=== PATIENT | male | born 1980 | race Caucasian/White ===

== ENCOUNTER 2020-08-24 14:56 | Observation (INO) | payer OTHER ==
[2020-08-24 14:59] VITALS: BP 148/88
[2020-08-24 15:52] LABS: BASO % 0.5 % (0.0-1.0); EOS # 0.1 10*3/uL (0.0-0.4); EOS % 0.7 % (1.0-4.0); HEMATOCRIT 48.3 % (42.0-52.0); LYMPH # 1.2 10*3/uL (1.3-4.4); LYMPH % 13.4 % (27.0-41.0); MEAN CELL VOLUME 81.9 fl (80.0-94.0); MEAN CORPUSCULAR HGB CONC 34.2 g/dl (33.0-37.0); MEAN PLATELET VOLUME 9.7 fl (9.6-12.3); MONO # 0.6 10*3/uL (0.1-1.0); MONO % 6.5 % (3.0-9.0); NEUT # 6.9 10*3/uL (2.3-7.9); NEUT % 78.4 % (47.0-73.0); PLATELET COUNT AUTOMATED 304 10*3/uL (130-400); RED CELL DISTRI WIDTH 12.1 % (0-14.5); WHITE BLOOD COUNT 8.8 10*3/uL (4.8-10.8)
[2020-08-24 15:57] VITALS: BP 168/97
[2020-08-24 16:12] LABS: ALBUMIN 4.2 gm/dl (3.1-4.5); ALKALINE PHOSPHATASE 68 U/L (45-117); BUN 33 mg/dl (7-24); CHLORIDE 91 mmol/L (98-107); CREATININE 1.91 mg/dL (0.70-1.30); LIPASE 398 U/L (73-393); POTASSIUM 3.5 mmol/L (3.5-5.1); SGOT/AST 10 IU/L (3-35); SGPT/ALT 17 U/L (12-78); SODIUM 130 mmol/L (136-145); TOTAL PROTEIN 8.4 gm/dL (6.4-8.2)
[2020-08-24 16:13] LABS: TROPONIN I < 0.015 ng/ml (<0.045)
[2020-08-24 16:43] VITALS: BP 159/78
[2020-08-24 17:16] LABS: ACT PARTIAL THROMBO TIME 25.9 SECONDS (20.0-32.1)
[2020-08-24 18:23] VITALS: BP 97/53
[2020-08-24 18:47] VITALS: BP 156/100
[2020-08-25 06:29] LABS: ALBUMIN 3.6 gm/dl (3.1-4.5); CHLORIDE 100 mmol/L (98-107); POTASSIUM 3.5 mmol/L (3.5-5.1); SODIUM 135 mmol/L (136-145)
[2020-08-25 06:36] LABS: ALKALINE PHOSPHATASE 52 U/L (45-117); CHOLESTEROL 231 mg/dL (<200); CREATININE 1.26 mg/dL (0.70-1.30); HDL CHOLESTEROL 49 mg/dl (40-60); LDL CHOLESTEROL 109 mg/dL (9-159); SGOT/AST 8 IU/L (3-35); SGPT/ALT 13 U/L (12-78); TOTAL PROTEIN 7.1 gm/dL (6.4-8.2); TRIGLYCERIDES 364 mg/dl (<150); VLDL CHOLESTEROL 73 mg/dL (6-40)
[2020-08-25 06:38] LABS: BUN 22 mg/dl (7-24)
[2020-08-25 06:41] LABS: BASO % 0.5 % (0.0-1.0); EOS # 0.1 10*3/uL (0.0-0.4); EOS % 1.1 % (1.0-4.0); LYMPH # 1.6 10*3/uL (1.3-4.4); LYMPH % 26.3 % (27.0-41.0); MEAN CORPUSCULAR HGB 27.9 pg (27.0-31.0); MEAN CORPUSCULAR HGB CONC 33.6 g/dl (33.0-37.0); MEAN PLATELET VOLUME 9.7 fl (9.6-12.3); MONO # 0.6 10*3/uL (0.1-1.0); MONO % 9.5 % (3.0-9.0); NEUT # 3.8 10*3/uL (2.3-7.9); NEUT % 62.1 % (47.0-73.0); PLATELET COUNT AUTOMATED 292 10*3/uL (130-400); RED BLOOD COUNT 5.42 10*6/uL (4.50-5.90); RED CELL DISTRI WIDTH 11.9 % (0-14.5); WHITE BLOOD COUNT 6.1 10*3/uL (4.8-10.8)
[2020-08-25] MEDS ORDERED: ATORVASTATIN CA20 M1 PO (11:08)
[2020-08-25] MEDS ORDERED: AMLODIPINE BESYL5 MG PO (11:08)
[2020-08-25] MEDS ORDERED: GLUCOPHAGE1000 MG PO (11:09)
[2020-08-25 11:11] VITALS: BP 130/93
[2020-08-25] MEDS ORDERED: ZOFRAN4 MG PO (11:11)
== END 2020-08-25 11:32 | disposition home or self-care (01) ==
LOC: ED 14:56 → EDHOLD 18:31
PROVIDERS: Emergency Medicine; Internal Medicine; ADMIT Internal Medicine; ATTEND Internal Medicine
DX: R11.2 Nausea with vomiting, unspecified (principal); E11.65 Type 2 diabetes mellitus with hyperglycemia; F11.10 Opioid abuse, uncomplicated; E11.10 Type 2 diabetes mellitus with ketoacidosis without coma; N17.0 Acute kidney failure with tubular necrosis; R42 Dizziness and giddiness; R74.8 Abnormal levels of other serum enzymes; E86.0 Dehydration; E87.1 Hypo-osmolality and hyponatremia; I10 Essential (primary) hypertension; E78.5 Hyperlipidemia, unspecified; E83.39 Other disorders of phosphorus metabolism; Z90.49 Acquired absence of other specified parts of digestive tract; Z20.828 Contact with and (suspected) exposure to other viral communicable diseases

== ENCOUNTER 2022-01-05 07:52 | Inpatient (IN) | payer OTHER ==
[2022-01-05] VITALS: BP 152/87
[~2022-01-05] VITALS: Ht 172.7 cm; Wt 69.9 kg
[~2022-01-05 07:52] MED LIST: AMLODIPINE BESYL5 MG PO; ATORVASTATIN CA20 M1 PO; GLUCOPHAGE1000 MG PO; ZOFRAN4 MG PO
[2022-01-05 07:57] VITALS: BP 134/88
[2022-01-05] MEDS ORDERED: FLUOXETINE HYDR20 M1 PO (08:10)
[2022-01-05] MEDS ORDERED: GLUCOTROL10 MG PO (08:10)
[2022-01-05] MEDS ORDERED: CLOPIDOGREL75 MG PO (08:10)
[2022-01-05] MEDS ORDERED: LAMICTAL25 MG PO (08:11)
[2022-01-05 08:12] LABS: BASO % 0.5 % (0.0-1.0); EOS # 0.2 10*3/uL (0.0-0.4); EOS % 2.7 % (1.0-4.0); HEMATOCRIT 36.1 % (42.0-52.0); LYMPH # 1.6 10*3/uL (1.3-4.4); LYMPH % 21.2 % (27.0-41.0); MEAN CELL VOLUME 75.7 fl (80.0-94.0); MEAN CORPUSCULAR HGB 22.9 pg (27.0-31.0); MEAN CORPUSCULAR HGB CONC 30.2 g/dl (33.0-37.0); MEAN PLATELET VOLUME 8.8 fl (9.6-12.3); MONO # 0.7 10*3/uL (0.1-1.0); MONO % 9.1 % (3.0-9.0); NEUT # 4.9 10*3/uL (2.3-7.9); PLATELET COUNT AUTOMATED 354 10*3/uL (130-400); RED BLOOD COUNT 4.77 10*6/uL (4.50-5.90); RED CELL DISTRI WIDTH 17.5 % (0-14.5); WHITE BLOOD COUNT 7.5 10*3/uL (4.8-10.8)
[2022-01-05] MEDS ORDERED: LANTUS SOL100 UNIT/1 SC (08:12)
[2022-01-05] MEDS ORDERED: METFORMIN HYD1000 MG PO (08:12)
[2022-01-05 08:45] LABS: ALKALINE PHOSPHATASE 60 U/L (45-117); BUN 23 mg/dl (7-24); CHLORIDE 102 mmol/L (98-107); CREATININE 1.74 mg/dL (0.70-1.30); POTASSIUM 3.5 mmol/L (3.5-5.1); SGOT/AST 18 IU/L (3-35); SGPT/ALT 17 U/L (12-78); SODIUM 137 mmol/L (136-145); TOTAL PROTEIN 6.9 gm/dL (6.4-8.2)
[2022-01-05 08:48] LABS: ETHYL ALCOHOL < 3.0 mg/dl (<3)
[2022-01-05 09:26] LABS: BILIRUBIN Negative (Negative); BLOOD Negative (Negative); CLARITY Clear (Clear); COLOR Yellow (Yellow); GLUCOSE 3+ (Negative); KETONE Trace (Negative); LEUKO ESTERASE Negative (Negative); NITRITE Negative (Negative); PH 5.5 (4.5-8.0); SPECIFIC GRAVITY 1.025 (1.001-1.030)
[2022-01-05 09:34] LABS: URINE AMPHETAMINES < 1000 (1000ng/ml); URINE BARBITURATES < 200 (200ng/ml); URINE BENZODIAZEPINES < 200 (200ng/ml); URINE CANNABINOIDS (THC) < 50 (50ng/ml); URINE COCAINE > 300 (300ng/ml); URINE METHADONE < 300 (300ng/ml); URINE OPIATES < 300 (300ng/ml)
[2022-01-05 09:36] LABS: MUCOUS 1+; RBC 0-2 rbc/hpf (0-2)
[2022-01-05 09:41] LABS: URINE PHENCYCLIDINE < 25 (25ng/ml)
[2022-01-05 13:55] VITALS: BP 144/86
[2022-01-05 16:00] VITALS: BP 152/87
[2022-01-05 20:00] VITALS: BP 154/96
[2022-01-06] VITALS: BP 152/87
[2022-01-06 06:24] LABS: ALKALINE PHOSPHATASE 67 U/L (45-117); BUN 19 mg/dl (7-24); CHLORIDE 106 mmol/L (98-107); CHOLESTEROL 198 mg/dL (<200); CREATININE 0.95 mg/dL (0.70-1.30); LDL CHOLESTEROL 97 mg/dL (9-159); POTASSIUM 3.6 mmol/L (3.5-5.1); SGOT/AST 15 IU/L (3-35); SGPT/ALT 17 U/L (12-78); SODIUM 139 mmol/L (136-145); TOTAL PROTEIN 6.7 gm/dL (6.4-8.2); TRIGLYCERIDES 233 mg/dl (<150)
[2022-01-06 08:00] VITALS: BP 147/84
[2022-01-06 12:00] VITALS: BP 150/90
[2022-01-06] MEDS ORDERED: THERA TABLET400 MCG PO (13:07)
[2022-01-06] MEDS ORDERED: ONDANSETRON HYDR4 M1 PO (13:07)
[2022-01-06] MEDS ORDERED: ATARAX,VISTARIL50 MG PO (13:07)
[2022-01-06] MEDS ORDERED: VITAMIN B-1100 M1 PO (13:07)
[2022-01-06] MEDS ORDERED: NATURE'S BLEND F1 MG PO (13:07)
[2022-01-06] MEDS ORDERED: METHOCARBAMOL750 M1 PO (13:07)
[2022-01-06] MEDS ORDERED: ROPINIROLE HYD0.5 MG PO (13:07)
[2022-01-06 16:00] VITALS: BP 148/85
== END 2022-01-06 21:02 | disposition left against medical advice (07) | DRG 770 ==
LOC: ED 07:52 → EDHOLD 09:00 → 4E 09:00
PROVIDERS: Registered Nurse; Student in an Organized Health Care Education/Training Program; ADMIT Internal Medicine; ATTEND Internal Medicine
DX: F11.13 Opioid abuse with withdrawal (principal); N17.0 Acute kidney failure with tubular necrosis; E11.65 Type 2 diabetes mellitus with hyperglycemia; I10 Essential (primary) hypertension; E78.5 Hyperlipidemia, unspecified; F41.9 Anxiety disorder, unspecified; Z53.29 Procedure and treatment not carried out because of patient's decision for other reasons; Z88.2 Allergy status to sulfonamides; Z88.8 Allergy status to other drugs, medicaments and biological substances; Z79.899 Other long term (current) drug therapy; Z90.49 Acquired absence of other specified parts of digestive tract; Z79.4 Long term (current) use of insulin